=== PATIENT | male | born 1945 | race Caucasian/White ===

== ENCOUNTER 2017-08-04 07:26 | Day surgery (SDC) | payer MEDICARE, OTHER ==
[~2017-08-04] VITALS: Ht 175.3 cm; Wt 143.8 kg
[~2017-08-04 07:26] MED LIST: ADVAIR DISK2 IN; ALBUTEROL SUL0.083 % IN; ASPIRIN ADULT L81 MG PO; CO Q-10200 M1 PO; DELTASONE20 MG PO; DOXYCYCL HYC100 MG PO; GLIPIZIDE10 MG PO; HYDROCHLOROT50 MG PO; INVOKANA300 MG; METFORMIN1000 MG PO; MOVE FREE JOINT1 TAB PO; MULTI VIT PO; PROBIOTIC DAILY1 CAP PO; ROBITUSSIN AC10 ML PO; VENTOLIN HFA IN; VITAMIN B-6100 MG PO; ZESTRIL10 M1 PO
[2017-08-04 10:04] VITALS: BP 103/55
== END 2017-08-04 10:20 | disposition home or self-care (01) ==
LOC: ENDO 07:26
PROVIDERS: ATTEND Surgery
PROC: 0DJD8ZZ Inspection of Lower Intestinal Tract, Via Natural or Artificial Opening Endoscopic (ICD-10-PCS; principal; 2017-08-04)
DX: Z12.11 Encounter for screening for malignant neoplasm of colon (principal); K57.30 Diverticulosis of large intestine without perforation or abscess without bleeding; Z86.010 Personal history of colon polyps

== ENCOUNTER 2017-08-17 14:45 | Inpatient (IN) | payer MEDICARE, OTHER ==
[~2017-08-17] VITALS: Ht 175.3 cm; Wt 145.1 kg
[2017-08-17] MEDS ORDERED: METFORMIN1000 MG PO (16:12)
[2017-08-17] MEDS ORDERED: ZESTRIL10 M1 PO (16:13)
[2017-08-17] MEDS ORDERED: HYDROCHLOROTHIA50 MG PO (16:15)
--- NOTE | 2017-08-20 17:40 | NUR ---
FROM OR VIA BED ACCOMPANIED BY MARKOS RODRÍGUEZ. AT BEDSIDE. RESPS EVEN AND UNLABORED ON O2 VIA NC. LEFT ARM IN SLING. LEFT FINGERS WITH FULL RANGE OF MOTION, BRISK CAP REFILL. SCD'S TO BILAT LOWER EXTRMITIES. #20 RFA INFUSING WITHOUT DIFFICULTY, SITE APPEARS HEALTHY. DENIES PAIN OR DISCOMFORT. ORIENTED TO ROOM AND CALL SYSTEM. SAFETY PRECAUTIONS REINFORCED. BED IN LOWEST POSITION WITH WHEELS LOCKED. CALL LIGHT WITHIN REACH. ENCOURAGED PT TO CALL FOR ANY NEEDS.
[2017-08-20 17:55] VITALS: BP 95/52
--- NOTE | 2017-08-20 18:00 | NUR ---
TOLERATING CLEAR LIQUID DIET WITHOUT C/O NAUSEA OR ABD PAIN.
[2017-08-20 18:10] VITALS: BP 95/52
[2017-08-20 18:25] VITALS: BP 92/48
[2017-08-20 18:40] VITALS: BP 92/47
--- NOTE | 2017-08-20 19:05 | NUR ---
MEDICATED WITH DILAUDID 1MG IVP FOR C/O 3/10 LEFT SHOULDER PAIN.
[2017-08-20 19:10] VITALS: BP 101/58
--- NOTE | 2017-08-20 21:40 | NUR ---
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 AT BEDSIDE AND PT EDUCATED ON USE X10 PER HR,GOAL SET TO 2000;LUNGS CLEAR;SCD'S IN PLACE;#20G TO RIGHT FOREARM INFUSING LR @ 100ML/HR;PT TOLERATING PO FLUIDS WELL;SAFETY PRECAUTIONS REINFORCED;PT DENIES ANY OTHER NEEDS;CALL LIGHT IN REACH;WILL CONTINUE TO MONITOR
--- NOTE | 2017-08-20 23:00 | NUR ---
PT MEDICATED WITH DILAUDID 1MG FOR PAIN,WILL CONTINUE TO MONITOR FOR EFFECTIVENESS
--- NOTE | 2017-08-21 | NUR ---
PT APPEARS TO BE SLEEPING WITH EYES CLOSED AND HOME CPAP ON;RESPIRATIONS EVEN AND UNLABORED;IV FLUIDS INFUSING WELL;NO S/S OF DISTRESS NOTED;CALL LIGHT IN REACH;WILL CONTINUE TO MONITOR
[2017-08-21 00:22] VITALS: BP 110/62
--- NOTE | 2017-08-21 03:40 | NUR ---
PT COMPLAINS OF LEFT SHOULDER PAIN RATING 6/10 ON THE PAIN SCALE AND REQUESTS PAIN MEDICATION;PT MEDICATED WITH PRN PERCOCET 1 COMBO;PT REQUESTS TO AMBULATE AROUND THE ROOM,NURSE AT BEDSIDE;PT AMBULATES WITH A STEADY GAIT;RESPIRATIONS EVEN AND UNLABORED ON RA;PT RE-POSITIONED IN RECLINER;FALL PRECAUTIONS IN PLACE;WILL CONTINUE TO MONITOR
[2017-08-21 03:55] VITALS: BP 122/63
--- NOTE | 2017-08-21 05:40 | NUR ---
PT REPORTS TO HAVE VOMITED IN RESTROOM;PT TO BE MEDICATED WITH ZOFRAN 4MG IV;EMESIS BAG PROVIDED;PT ALSO REPORTS PAIN TO BE A 6/10 ON THE PAIN SCALE BUT DENIES THE NEED FOR PAIN MEDICATION;PT STATES "IM GOING HOME TODAY SO I WILL WAIT UNTIL I CAN HAVE THE PERCOCET AGAIN";WILL CONTINUE TO MONITOR
--- NOTE | 2017-08-21 07:00 | NUR ---
SHIFT CHANGE REPORT FRON JEFF, PT AWAKE ALERT AND ORIENTED SITTING UP IN SOFA, C/O ACHING PAIN TO SURGICAL ARM @ 5/10 BUT REFUSES ANALGESICS AT THIS TIME, ARM ELEVATED IN SLING,IVF INFUSING, PT AMBULATES INDEPENDENTLY IN ROOM AND CALL COOLEY REACHABLE. PT REPORTS UNIT WAS VERY NOISY DURING THE NIGHT IF THERE WAS A REPUBLICAN AND THAT CONDITION KEPT HIM FROM SLEEPING WELL, ADVISED STAFF WILL ADDRESS ALL PROBLEMS/PATIENTS' CONCERNS FOR COMFORT. WILL CONTINUE TO MONITOR.
[2017-08-21 07:52] LABS: HEMATOCRIT 43.8 % (39.0-50.0); HEMOGLOBIN 15.3 g/dl (14.0-18.0)
[2017-08-21 09:19] VITALS: BP 90/53
[2017-08-21] MEDS ORDERED: PERCOCET1 TA4 PO (11:38)
[2017-08-21 12:04] LABS: ANION GAP 17 (6-22 (CALC)); BUN 13 mg/dL (8-23); BUN/CREATININE RATIO 18 (12-20 (CALC)); CALCIUM 9.3 mg/dL (8.4-10.2); CARBON DIOXIDE 23 mmol/l (22-30); CHLORIDE 101 mmol/l (95-108); CREATININE 0.7 mg/dL (0.7-1.3); GFR > 60 ML/MIN (>=60 (CALC)); GFR FOR AFR.AMER. > 60 ML/MIN (>=60 (CALC)); GLUCOSE 199 mg/dL (82-115); POTASSIUM 4.3 mmol/l (3.5-5.1); SODIUM 136 mmol/l (137-146)
--- NOTE | 2017-08-21 12:30 | NUR ---
CALLED DR NICOLE TO INQUIRE ABOUT F/U APPOINTMENT AND DRESSING CHANGES, GAVE ORDERS AND ORDERS PLACED IN D/C INSTRUCTIONS.
--- NOTE | 2017-08-21 13:07 | NUR ---
Discharge instructions given. Patient verbalizes understanding of same. Discharged in stable condition via Wheelchair to Home with spouse. All belongings sent with pt.
== END 2017-08-21 12:51 | disposition home or self-care (01) | DRG 483 ==
LOC: MS2 08-20 10:08
PROVIDERS: ADMIT Orthopaedic Surgery; ATTEND Internal Medicine
PROC: 0RRK00Z Replacement of Left Shoulder Joint with Reverse Ball and Socket Synthetic Substitute, Open Approach (ICD-10-PCS; principal; 2017-08-20)
PROC: 0LS40ZZ Reposition Left Upper Arm Tendon, Open Approach (ICD-10-PCS; 2017-08-20)
DX: M19.012 Primary osteoarthritis, left shoulder (principal); E11.9 Type 2 diabetes mellitus without complications; S46.212A Strain of muscle, fascia and tendon of other parts of biceps, left arm, initial encounter; I10 Essential (primary) hypertension; J45.909 Unspecified asthma, uncomplicated; M75.102 Unspecified rotator cuff tear or rupture of left shoulder, not specified as traumatic; G47.33 Obstructive sleep apnea (adult) (pediatric); X58.XXXA Exposure to other specified factors, initial encounter; Z87.891 Personal history of nicotine dependence; Z79.84 Long term (current) use of oral hypoglycemic drugs
CPT/HCPCS: J2710

== ENCOUNTER 2017-09-17 20:03 | Inpatient (IN) | payer MEDICARE, OTHER ==
[~2017-09-17] VITALS: Ht 175.3 cm; Wt 143.0 kg
[~2017-09-17 20:03] MED LIST changes: +HYDROCHLOROTHIA50 MG PO; +PERCOCET1 TA4 PO
--- NOTE | 2017-09-17 20:05 | NUR ---
PT. AMBULATORY WITH STEADY GAIT TO TREATMENT ROOM.
[2017-09-17 21:41] LABS: HEMATOCRIT 41.5 % (39.0-50.0); HEMOGLOBIN 14.5 g/dl (14.0-18.0); IMMATURE GRANULOCYTES 0.3 % (0.0-1.0); MEAN CELL VOLUME 93.3 fL CALC (80.0-100.0); MEAN CORPUSCULAR HGB 32.6 pG CALC (26.0-32.0); MEAN CORPUSCULAR HGB CONC 34.9 g/L CALC (32.0-36.0); NEUT# 6.92 thou/uL (1.82-7.42); RED BLOOD COUNT 4.45 mill/uL (4.70-6.10)
[2017-09-17 21:56] LABS: ALKALINE PHOSPHATASE 86 u/l (38-126); ANION GAP 17 (6-22 (CALC)); BILIRUBIN, TOTAL 0.6 mg/dL (0.0-1.4); BUN 16 mg/dL (8-23); BUN/CREATININE RATIO 16 (12-20 (CALC)); CALCIUM 9.6 mg/dL (8.4-10.2); CARBON DIOXIDE 26 mmol/l (22-30); CHLORIDE 97 mmol/l (95-108); GFR > 60 ML/MIN (>=60 (CALC)); GFR FOR AFR.AMER. > 60 ML/MIN (>=60 (CALC)); GLUCOSE 238 mg/dL (82-115); POTASSIUM 4.3 mmol/l (3.5-5.1); SGOT/AST 35 u/l (19-48); SGPT/ALT 46 u/l (11-66); SODIUM 136 mmol/l (137-146); TOTAL PROTEIN 7.2 g/dL (6.3-8.2)
--- NOTE | 2017-09-17 22:23 | NUR ---
PT UP TO BR TO VOID. NAD. ANTIBIOTICS COMPLETED.
--- NOTE | 2017-09-18 01:17 | NUR ---
REPORT TO ANGELICA ON MED-SURG. PT BEING ADMITTED TO 283
[2017-09-18 01:55] VITALS: BP 126/82
--- NOTE | 2017-09-18 01:55 | NUR ---
VANCOMYCIN MIXED AND HUNG/NS BOLUS HUNG. PT TRANSPORTED TO FLOOR ALONG WITH . NAD.
--- NOTE | 2017-09-18 02:00 | NUR ---
PT ARRIVED TO ROOM VIA STRETCHER. ORIENTATION TO ROOM AND CALL LIGHT SYSTEM GIVEN. SNACK GIVEN. MED ORDERS COMPLETED. POC EXPLAINED. DENIES NEEDS. PHOTO DOCUMENTATION OF LT SHOULDER TAKEN. WILL CONTINUE TO MONITOR. CALL LIGHT IN REACH
[2017-09-18 03:45] VITALS: BP 130/67
--- NOTE | 2017-09-18 04:48 | NUR ---
PT IN BED AWAKE. DENIES NEEDS. NO S/S OF DISTRESS. CALL LIGHT IN REACH.
--- NOTE | 2017-09-18 07:00 | NUR ---
SHIFT CHANGE REPORT FROM BLAIR LOVELL AWAKE ALERT AND ORIENTED SITTING UP IN RECLINER, LEFT SHOULDER & ARM SWOLEN WITH WARMTH AND REDNESS AROUND INCISION SITE, DENIES PAIN AT THIS TIME BUT REPORTS HE DOES HAVE PAIN ON MOVEMENT OF ARM. IVF INFUSING, CALL COOLEY IN REACH, WILL CONTINUE TO MONITOR.
[2017-09-18 07:54] VITALS: BP 128/62
--- NOTE | 2017-09-18 11:44 | NUR ---
SITTING UP IN RECLINER, PAIN CONCERNS ADDRESSED, SPOUSE VISITING, CALL COOLEY IN REACH.
[2017-09-18 15:16] VITALS: BP 104/69
--- NOTE | 2017-09-18 16:19 | NUR ---
RELAXING IN RECLINER AT THIS TIME AFTER BEING ASSISTED WITH SHOWER BY LACING STRING CUTTER, ALL NEEDS MET/ADDRESSED, SPOUSE VISITING IN ROOM, OTHER FAMILY MEMBERS JUST ARRIVED ALSO, CALL COOLEY IN REACH.
--- NOTE | 2017-09-18 19:50 | NUR ---
PT AWAKE AND RESTING IN BED . PT ALERT AND ORIENTED. RESP EVEN AND UNLABORED. NO DISTRESS NOTED. LUNGS ARE CLEAR, DIMINISHED AT BASES BILAT. ABD IS DISTENDED,SOFT WITH ACTIVE BOWEL SOUNDS. EDEMA IN ANKLES BILAT +1 NOTED. PEDAL PULSES PALPATED. IV PATENT IN RIGHT HAND, FLUSHED WITHOUT ANY DIFFICULTY. LEFT SHOULDER IS RED AND SWOLLEN. SHOULDER HAS A YELLOW SPOT THAT IS UNOPEN AT THIS TIME WITH NO DRAINAGE. PT DENIES ANY PAIN OR DISCOMFORT AT THIS TIME. SAFETY PRECAUTIONS REINFORCED. FREQUENT ROUNDS MADE. CALL LIGHT WITHIN REACH.
[2017-09-18 20:10] VITALS: BP 121/76
--- NOTE | 2017-09-19 01:30 | NUR ---
PT LEFT SHOULDER WOUND STARTED TO DRAIN. PT STATED "I WOKE UP TO GO TO THE BATHROOM AND MY SHIRT WAS WET". SEROSANGUINEOUS DRAINAGE ON BED SHEETS, WOUND ACTIVELY DRIPPING. WOUND CULTURE TAKEN, PT CLEANED UP. PT RESTING IN BEDSIDE CHAIR, PT MEDICATED WITH LORTAB FOR "BURNING" PAIN AT SITE. GAUZE AND ABD PAD APPLIED TO SITE FOR DRAINAGE. PT STATES " SOME PRESSURE FEELS RELIEVED FROM SITE." WILL CONTINUE TO MONITOR. CALL LIGHT WITHIN REACH.
--- NOTE | 2017-09-19 04:42 | NUR ---
COPY ROOM TECHNICIAN IN ROOM WITH PT.
[2017-09-19 05:08] VITALS: BP 129/79
[2017-09-19 05:31] LABS: HEMATOCRIT 39.7 % (39.0-50.0); HEMOGLOBIN 13.7 g/dl (14.0-18.0); MEAN CELL VOLUME 94.7 fL CALC (80.0-100.0); MEAN CORPUSCULAR HGB 32.7 pG CALC (26.0-32.0); MEAN CORPUSCULAR HGB CONC 34.5 g/L CALC (32.0-36.0); RED BLOOD COUNT 4.19 mill/uL (4.70-6.10)
[2017-09-19 05:33] LABS: ANION GAP 14 (6-22 (CALC)); BUN 11 mg/dL (8-23); BUN/CREATININE RATIO 17 (12-20 (CALC)); CALCIUM 9.3 mg/dL (8.4-10.2); CARBON DIOXIDE 24 mmol/l (22-30); CHLORIDE 105 mmol/l (95-108); CREATININE 0.7 mg/dL (0.7-1.3); GFR > 60 ML/MIN (>=60 (CALC)); GFR FOR AFR.AMER. > 60 ML/MIN (>=60 (CALC)); GLUCOSE 152 mg/dL (82-115); MAGNESIUM 1.9 mg/dL (1.6-2.3); POTASSIUM 4.5 mmol/l (3.5-5.1); SODIUM 139 mmol/l (137-146)
--- NOTE | 2017-09-19 06:19 | NUR ---
PT APPEARS TO BE SLEEPING WITH CPAP IN PLACE. RESP EVEN AND UNLABORED. NO DISTRESS NOTED. CALL LIGHT WITHIN REACH.
--- NOTE | 2017-09-19 07:00 | NUR ---
SHIFT CHANGE REPORT FROM OSMEL, PT AWAKE ALERT AND ORIENTED SITTING UP IN CHAIR, REDNESS TO INFECTED SHOULDER IMPROVING, JAMILAH DRESSING WITH SMALL AMT SEROSANGUINOUS DRAINAGE CHANGED, WARM COMPRESS APPLIED, PT REPORTED HIS SHOULDER FEELS BETTER AFTER RELEASING COPIOUS AMOUNT DRAINAGE DURING NIGHT.
[2017-09-19 07:31] VITALS: BP 126/77
[2017-09-19 15:02] VITALS: BP 127/81
--- NOTE | 2017-09-19 16:00 | NUR ---
DR NICOLE HERE TO CONSULT WITH PT, PLACED DRAIN TO LEFT SHOULDER AND ORDERED DRY DRESSINGS BID AND PRN. PT LOST IV SITE, CREPE MAKER TY INFORMED AND ATTEMPTED UNSUCCESSFULLY TO PLACE NEW ONE, I ALSO TRIED AND WAS UNABLE TO START ONE, HEATH (CREPE MAKER) NOTIFIED AND WILL HAVE HS SHIFT FOLLOW-UP.
--- NOTE | 2017-09-19 18:55 | NUR ---
RECEIVED REPORT FROM LEANDER RAMON RN. INTRODUCED TO PT, FOUND PT SITTING ON RECLINER, NO DISTRESS NOTED, RESP ARE EVEN AND UNLABORED, DENIES PAIN, DRESSING TO RIGHT SHOULDER APPEARS CDI AT THIS TIME, WILL REASSESS AND CHANGE NEEDED, HAS A 22G LAC INFUSING MAXIPINE AT 200ML/HR AT THIS TIME WHEN COMPLETE WILL START VANCOMYCIN INFUSION, DENIES NEEDS, ENCOURAGED TO CALL IF NEEDED, VOICES UNDERSTANDING, WILL FOLLOW UP WITH ASSESSMENT AND MED SCHEDULE, CALL COOLEY AT REACH.
[2017-09-19 19:10] VITALS: BP 117/78
--- NOTE | 2017-09-19 20:04 | NUR ---
VACOMYCIN INFUSION STARTING AT THIS TIME, PREVIOUSLY MAXIPINE INFUSING, MAXIPINE STOPPED AND RESTARTED AGAIN DUE TO IV SITE PROBLEMS, NEW IV STARTED BY TRISTON LOERA SUP, EDUCATED PT ABOUT VANCOMYCIN SIDE EFFECTS, VOICES UNDERSTANDING, STATES HAD VACOMYCIN INFUSION BEFORE, ENCOURAGED TO CALL IF ANY DISCOMFORT OR PAIN, VOICES UNDERSTANDING, MEDICATED WITH LORTAB FOR RIGHT SHOULDER SHARP PAIN, RATES IT AT 3/10, WILL CONTINUE TO REASSESS.
--- NOTE | 2017-09-19 21:15 | NUR ---
ADMINISTERED LEVEMIR 18 UNITS SC PER EMAR, ACCU FINGERSTICK 161, PROVIDED A TURKEY SANDWICH, CHANGED DRESSING TO LEFT SHOULDER, MODERATE SEROSANGUINEOUS DRAINAGED NOTED, WOUND CULTURE OBTAINED AT THIS TIME PER DR. PAUL ORDERS, APPLIED CLEAN DRESSING AND ABD PAD, SECURED WITH SILK TAPE, SEE PICTURE IN CHART. PT CONTINUES SITTING UP IN RECLINER WATCHING TV, INSTRUCTED TO CALL IF NEEDED. CALL COOLEY AT REACH, RESP ARE EVEN AND UNLABORED ON ROOM AIR, USES CIPAP AT NIGHT, PT TOLERATED ACTIVITY WELL, NO DISTRESS NOTED.
--- NOTE | 2017-09-20 00:15 | NUR ---
PT AWAKE, RESTING IN BED, WEARING CIPAP, NO DISTRESS NOTED, C/O TENDER PAIN TO LEFT SHOULDER, RATES IT AT 1/10, REFUSES PAIN MED AT THIS TIME, DRESSING CDI, IV SITE REMAINS PATENT FLUSHES WELL, NO DISTRESS NOTED, WILL CONTINUE TO MONITOR. CALL COOLEY AT REACH.
--- NOTE | 2017-09-20 04:00 | NUR ---
STARTED MAXIPINE INFUSION AT THIS TIME, IV SITE IS PATENT, NO S/S OF INFILTRATION NOTED, PT RESTING IN BED, SUPINE POSITION, WEARING CIPAP, RESP ARE EVEN AND UNLABORED, DENIES PAIN, DRESSING TO LEFT SHOULDER REMAINS CDI, NO DRAINAGE NOTED AT THIS TIME, WILL CONTINUE TO MONITOR, ENCOURAGED TO CALL IF NEEDED, CALL COOLEY AT REACH.
[2017-09-20 04:37] VITALS: BP 133/74
--- NOTE | 2017-09-20 04:46 | NUR ---
C/O PAIN TO LEFT SHOULDER, RATES IT AT 4/10, MEDICATED WITH LORTAB, DRESSING APPEARS CDI, NO SIGNS OF DRAINAGED NOTED, ASSISTED TO BRP, VOIDED 300CC CLEAR YELLOW URINE, NO BM NOTED, DENIES ANY OTHER NEEDS, WILL CONTINUE TO REASSESS, CALL COOLEY AT REACH.
--- NOTE | 2017-09-20 06:52 | NUR ---
VANCO INFUSING WITHOUT DIFFICULTY AT THIS TIME, PT DENIES PAIN, DRESSING TO LEFT SHOULDER IS CDI, NO DRAINAGE NOTED AT THIS TIME, WILL CONTINUE TO MONITOR. CALL COOLEY AT REACH. CONTINUE ON CIPAP.
--- NOTE | 2017-09-20 07:00 | NUR ---
SHIFT CHANGE REPORT FROM DARCY, PT RESTING IN BED, AWAKE ALERT AND ORIENTED, C/O MILD ACHING PAIN TO LEFT SHOULDER @ 3/10, ISSUE ADDRESSED, DRESSING TO SHOULDER IN TACT WITH NO VISIBLE SIGN DRAINAGE, ALL NEEDS ADDRESSED, CALL COOLEY IN REACH.
[2017-09-20 07:42] VITALS: BP 127/85
--- NOTE | 2017-09-20 08:00 | NUR ---
UPON ASSESSMENT PT IS AWAKE AND ORIENTED X3. PTS LUNGS ARE CLEAR AND PULSE IS REGULAR.PERRLA 3. RESPIRATIONS ARE EVEN AND UNLABORED, PT IS ON ROOM AIR. PT HAS A 22G LAC, IV IS FREE FROM IRRITATION. REDNESS, SWELLING. BOWEL SOUNDS ARE NORMAL IN ALL FOUR QUADRANTS. ABDOMEN IS DISTENDED BUT SOFT. DESTINI'S SIGN IS NEGATIVE. PT'S LEFT ANKLE IS 1 PLUS SLIGHTLY PITTING EDEMA. PT'S RIGHT ANKLE IS TRACE EDEMA. DRESSING CHANGE TO PATIENTS LEFT SHOULDER DONE BY . SEROSANQUINEOUS FLUID ON THE OLD DRESSING AND SEEPING FROM WOUND. EDEMA AND REDNESS NOTED. PIG TAIL DRIANS INTACT, WOUND WAS CLEANED WITH CHLORAPREP. WOUND DRESSED WITH JAMILAH AND AN ABD PAD. PATIENT HAS NO COMPLAINTS OF PAIN AT THIS TIME. PT IS UP IN HIS RECLINER WITH LEGS ELEVATED. PT DOES NOT EXPRESS ANY NEEDS AT THIS TIME. CALL LIGHT WITHIN REACH. PT ENCOURAGED TO CALL FOR HELP IF NEEDED. WILL CONTINUE TO MONITOR.
--- NOTE | 2017-09-20 09:34 | NUR ---
DR HILL ([facility]) HERE AT THIS TIME ROUNDING, ASSESSED WOUND TO L. SHOULDER AND CHANGED DRESSING, OLD JAMILAH DRESSING SATURATED WITH SEROSANGUINOUS DRAINAGE, WOUND CLEANED WITH CHLORAPREP AND NEW STERILE JAMILAH DRESSING APPLIED, COVERED WITH ABD PAD AND SECURED WITH PAPER TAPE.
--- NOTE | 2017-09-20 10:05 | NUR ---
Vancomycin single level analysis: Current dose being given: 1500 mg Current dosing interval: 12 hrs Current infusion time (hrs): 2 Single level Trough Data: Trough level obtained: 7 mcg/ml NEXT TROUGH WILL BE 1230 ON 09/21/17 Recommendations: Give Vancomycin 1500 mg q 8 hrs. Infuse over 2 hrs
[2017-09-20 11:30] VITALS: BP 107/69
--- NOTE | 2017-09-20 14:51 | NUR ---
SITTING UP IN CHAIR WITH SPOUSE AT SIDE AT THIS TIME, IVABT INFUSING, ALL NEEDS ADDRESSED, CALL COOLEY IN REACH.
[2017-09-20 17:00] VITALS: BP 107/59
[2017-09-20 19:20] VITALS: BP 117/76
--- NOTE | 2017-09-20 20:00 | NUR ---
PATIENT SITTING UP IN RECLINER AT THIS TIME-AWAKE ALERT AND ORIENTEDX3. PATIENT WITH NO COMPLAINTS AT THIS TIME. STATES RELIEF FROM PERCOCET TAKEN EARLIER. PATIENT WITH IV SITE TO LEFT AC INTACT AND APPEARS HEALTHY AT THIS TIME. PATIENT WITH DRESSING TO LEFT SHOULDER INTACT AT THIS TIME. PATIENT ENCOURAGE TO ELEVATE FEET WHEN OOB SINCE HE DOES HAVE SWELLING TO BOTH LE. SAFETY PRECAUTIONS REINFORCED. CALL LIGHT IN REACH. WILL CONT TO MONITOR.
--- NOTE | 2017-09-20 23:00 | NUR ---
DRESSING CHANGE TO LEFT SHOULDER BY LUIS ROE FRAMEMAN-STATES THAT THE DRAIN WAS FOUND OUT TWHEN DRESSING REMOVED. WOUND WAS CLEANSED WITH NS AND DSD APPLIED. MODERATE AMT OF SEROUS DRAINGAGE ON OLD DRESSING. PATIENT MEDICATED PER PATIENT REQUEST. CALL LIGHT IN REACH. WILL CONT TO MONITOR.
--- NOTE | 2017-09-21 | NUR ---
PATIENT RESTING IN BED AT THIS TIME APPEARS SLEEPING WITH EYES CLOSED AND C-PAP IN PLACE. CALL LIGHT IN REACH. WILL CONT TO MONITOR.
[2017-09-21 00:20] VITALS: BP 106/63
--- NOTE | 2017-09-21 03:52 | NUR ---
PATIENT RESTING IN BED-C/O LEFT SHOULDER PAIN-MEDICATED WITH LORTAB 5/325MG PO ORDERED. MAXIPIME HUNG ORDERED. CALL LIGHT IN REACH. WILL CONT TO MONITOR.
[2017-09-21 05:19] LABS: HEMATOCRIT 40.1 % (39.0-50.0); HEMOGLOBIN 13.8 g/dl (14.0-18.0); IMMATURE GRANULOCYTES 0.2 % (0.0-1.0); MEAN CELL VOLUME 93.3 fL CALC (80.0-100.0); MEAN CORPUSCULAR HGB 32.1 pG CALC (26.0-32.0); MEAN CORPUSCULAR HGB CONC 34.4 g/L CALC (32.0-36.0); NEUT# 2.9 thou/uL (1.82-7.42); RED BLOOD COUNT 4.3 mill/uL (4.70-6.10)
[2017-09-21 05:30] VITALS: BP 119/82
[2017-09-21 05:41] LABS: ANION GAP 14 (6-22 (CALC)); BUN 11 mg/dL (8-23); BUN/CREATININE RATIO 15 (12-20 (CALC)); CALCIUM 9.1 mg/dL (8.4-10.2); CARBON DIOXIDE 24 mmol/l (22-30); CHLORIDE 106 mmol/l (95-108); CREATININE 0.7 mg/dL (0.7-1.3); GFR > 60 ML/MIN (>=60 (CALC)); GFR FOR AFR.AMER. > 60 ML/MIN (>=60 (CALC)); GLUCOSE 145 mg/dL (82-115); MAGNESIUM 2.1 mg/dL (1.6-2.3); POTASSIUM 4.3 mmol/l (3.5-5.1); SODIUM 140 mmol/l (137-146)
[2017-09-21 09:24] VITALS: BP 139/66
[2017-09-21 09:38] LABS: URINE BILIRUBIN - DIPSTICK NEGATIVE (NEGATIVE); URINE BLOOD DIPSTICK NEGATIVE (NEGATIVE); URINE COLOR YELLOW; URINE GLUCOSE - DIPSTICK 250 mg/dL (NEGATIVE); URINE KETONE NEGATIVE (NEGATIVE); URINE LEUK ESTERASE NEGATIVE (NEGATIVE); URINE NITRITE - DIPSTICK NEGATIVE (Negative); URINE PROTEIN - DIPSTICK NEGATIVE (NEG-TRACE); URINE UROBILINOGEN - DIPSTICK 0.2 E.U./dL (0.2)
[2017-09-21 09:40] LABS: URINE CLARITY CLEAR
--- NOTE | 2017-09-21 11:17 | NUR ---
PT.UPRIGHT IN CHAIR WATCHING NEWS, MEDICATED ORDERS PROVIDE, DENIES ANY NEEDS AT THIS TIME, PT.ASSESSED AND POC DISCUSSED WITH PT. HE EXPRESSED EITHER GETTING PICC LINE PLACED OR GOING HOME WITH IV IN PLACE. HIS IS HAVING CATERACT SURGERY TODAY AND HE WANTS TO BE HOME TO HELP HER. CALL LIGHT IS WITHIN REACH AND HE DENIES ANY OTHER NEEDS AT THIS TIME
[2017-09-21] MEDS ORDERED: LISINOPRIL20 M1 PO (13:40)
[2017-09-21] MEDS ORDERED: ATORVASTATIN CA10 MG PO (13:40)
[2017-09-21] MEDS ORDERED: AMLODIPINE BESYL5 MG PO (13:40)
[2017-09-21] MEDS ORDERED: NOVOLOG100 UNIT/M SC (13:41)
[2017-09-21] MEDS ORDERED: LEVEMIR100 UNIT/M SC (13:41)
[2017-09-21] MEDS ORDERED: CUBICIN500 MG IV (13:42)
[2017-09-21 15:53] VITALS: BP 125/80
--- NOTE | 2017-09-21 17:30 | NUR ---
PT.DRESSING CHANGE COMPLETED AND IV ACCESS REMOVED INTACT, SITE APPEARS HEALTHY, PT.DISCHARGED IN GOOD CONDITION, VIA WC ACCOMPANIED BY STAFF AND .
== END 2017-09-21 17:30 | disposition home or self-care (01) | DRG 863 ==
LOC: ED 20:03 → ED-I 09-18 → ED 09-18 00:59 → MS2 09-18 01:00
PROVIDERS: Emergency Medicine; Nurse Practitioner Family; ADMIT Internal Medicine; ATTEND Internal Medicine
PROC: 0H9CXZX Drainage of Left Upper Arm Skin, External Approach, Diagnostic (ICD-10-PCS; principal; 2017-09-21)
DX: T81.4XXA Infection following a procedure, initial encounter (principal); E11.9 Type 2 diabetes mellitus without complications; L03.114 Cellulitis of left upper limb; E66.01 Morbid (severe) obesity due to excess calories; G47.33 Obstructive sleep apnea (adult) (pediatric); I10 Essential (primary) hypertension; Z68.42 Body mass index [BMI] 45.0-49.9, adult; Y83.1 Surgical operation with implant of artificial internal device as the cause of abnormal reaction of the patient, or of later complication, without mention of misadventure at the time of the procedure; Z96.612 Presence of left artificial shoulder joint; Z87.891 Personal history of nicotine dependence; Z79.84 Long term (current) use of oral hypoglycemic drugs
CPT/HCPCS: J0692; J1650; J3370

== ENCOUNTER 2019-01-20 13:04 | Emergency (ER) | payer MEDICARE, OTHER ==
[~2019-01-20] VITALS: Ht 175.3 cm; Wt 145.0 kg
[~2019-01-20 13:04] MED LIST changes: +AMLODIPINE BESYL5 MG PO; +ATORVASTATIN CA10 MG PO; +CUBICIN500 MG IV; +LEVEMIR100 UNIT/M SC; +LISINOPRIL20 M1 PO; +NOVOLOG100 UNIT/M SC
[2019-01-20] MEDS ORDERED: FLEXERIL PO (13:34)
[2019-01-20 13:36] VITALS: BP 131/74
== END 2019-01-20 13:37 | disposition home or self-care (01) ==
LOC: ED 13:04
DX: S39.012A Strain of muscle, fascia and tendon of lower back, initial encounter (principal); M54.5 Low back pain; X50.0XXA Overexertion from strenuous movement or load, initial encounter; X50.1XXA Overexertion from prolonged static or awkward postures, initial encounter; Y93.89 Activity, other specified; Y92.009 Unspecified place in unspecified non-institutional (private) residence as the place of occurrence of the external cause

== ENCOUNTER 2019-09-28 10:17 | Emergency (ER) | payer MEDICARE, OTHER ==
[~2019-09-28] VITALS: Ht 175.3 cm; Wt 145.0 kg
[~2019-09-28 10:17] MED LIST changes: +FLEXERIL PO
[2019-09-28] MEDS ORDERED: VOLTAREN1%GEL TOP (11:53)
[2019-09-28] MEDS ORDERED: ZESTRIL10 M1 PO (13:24)
[2019-09-28] MEDS ORDERED: LASIX 40 MG TAB40 MG PO (13:25)
[2019-09-28] MEDS ORDERED: METOPROL TAR25 MG PO (13:25)
[2019-09-28] MEDS ORDERED: METFORMIN850 MG PO (13:25)
[2019-09-28] MEDS ORDERED: TOPROL XL25 M1 PO (13:27)
[2019-09-28] MEDS ORDERED: TRESIBA100 UNIT/M (13:28)
[2019-09-28] MEDS ORDERED: LIPITOR20 M1 PO (13:28)
[2019-09-28 13:51] VITALS: BP 162/93
== END 2019-09-28 13:57 | disposition home or self-care (01) ==
LOC: ED 10:17
DX: M54.5 Low back pain (principal); M79.672 Pain in left foot; S40.212A Abrasion of left shoulder, initial encounter; I10 Essential (primary) hypertension; E11.9 Type 2 diabetes mellitus without complications; J45.909 Unspecified asthma, uncomplicated; W18.39XA Other fall on same level, initial encounter

== ENCOUNTER 2021-08-13 07:39 | Emergency (ER) | payer MEDICARE ==
[~2021-08-13] VITALS: Ht 175.3 cm; Wt 133.0 kg
[~2021-08-13 07:39] MED LIST changes: +ALLERGY RELIEF10 M4 PO; +ASPIRIN81 MG PO; +B121000 MC1 PO; +COQ10200 MG PO; +KETOCONAZOLE2 % EX; +LASIX 40 MG TAB40 MG PO; +LIPITOR20 M1 PO; +LOSARTAN POTASS50 MG PO; +METFORMIN500 M2 PO; +METOPROL TAR25 MG PO; +NEXIUM40 M1 PO; +OFEV150 MG PO; +POTASSIUM99 MG PO; +SINGULAIR10 MG PO; +TESSALON PERLE100 MG PO; +TOPROL XL25 M1 PO; +TRELEGY ELLIPTA1 AE1 IN; +TRESIBA100 UNIT/M SC; +VOLTAREN1%GEL TOP
[2021-08-13 08:45] LABS: URINE BLOOD DIPSTICK LARGE (NEGATIVE); URINE GLUCOSE - DIPSTICK NEGATIVE (NEGATIVE); URINE KETONE TRACE mg/dL (NEGATIVE); URINE LEUK ESTERASE TRACE (NEGATIVE); URINE PROTEIN - DIPSTICK 100 mg/dL (NEG-TRACE); URINE SPECIFIC GRAVITY >=1.030; URINE UROBILINOGEN - DIPSTICK 0.2 E.U./dL (0.2)
[2021-08-13 08:50] LABS: HEMATOCRIT 48.7 % (39.0-50.0); HEMOGLOBIN 16.1 g/dl (14.0-18.0); IMMATURE GRANULOCYTES 0.2 % (0.0-5.0); MEAN CELL VOLUME 92.8 fL CALC (80.0-100.0); MEAN CORPUSCULAR HGB 30.7 pG CALC (26.0-32.0); MEAN CORPUSCULAR HGB CONC 33.1 g/dL CAL (32.0-36.0); NEUT# 8.72 thou/uL (1.82-7.42); RED BLOOD COUNT 5.25 mill/uL (4.70-6.10); RED CELL DISTRI WIDTH 17.6 % (11.5-15.5)
[2021-08-13 08:55] LABS: URINE BILIRUBIN - DIPSTICK NEGATIVE (NEGATIVE); URINE COLOR BLOODY; URINE NITRITE - DIPSTICK NEGATIVE (Negative)
[2021-08-13 08:56] LABS: URINE RBC TNTC RBC/hpf (0-5); URINE WBC 0-2 WBC/hpf (0-5)
[2021-08-13 09:08] LABS: ALBUMIN 3.7 g/dL (3.2-5.0); ALKALINE PHOSPHATASE 81 u/l (38-126); ANION GAP 10 (6-22 (CALC)); BILIRUBIN, TOTAL 1.6 mg/dL (0.0-1.4); BUN 10 mg/dL (8-23); BUN/CREATININE RATIO 12 (12-20 (CALC)); CARBON DIOXIDE 29 mmol/l (22-30); CHLORIDE 105 mmol/l (95-108); CREATININE 0.9 mg/dL (0.7-1.3); GFR > 60 ML/MIN (>=60 (CALC)); GFR FOR AFR.AMER. > 60 ML/MIN (>=60 (CALC)); LIPASE 58 u/l (23-300); POTASSIUM 4.1 mmol/l (3.5-5.1); SGOT/AST 38 u/l (19-48); SODIUM 140 mmol/l (137-146); TOTAL PROTEIN 7.2 g/dL (6.3-8.2)
[2021-08-13] MEDS ORDERED: OMNI-PAC300 MG PO (09:45)
[2021-08-13 10:05] VITALS: BP 143/74
== END 2021-08-13 10:05 | disposition home or self-care (01) ==
LOC: ED 07:39
PROVIDERS: Family Medicine
DX: R31.9 Hematuria, unspecified (principal); I10 Essential (primary) hypertension; E11.9 Type 2 diabetes mellitus without complications; J84.112 Idiopathic pulmonary fibrosis; J45.909 Unspecified asthma, uncomplicated; E66.9 Obesity, unspecified; Z68.41 Body mass index [BMI] 40.0-44.9, adult; Z79.84 Long term (current) use of oral hypoglycemic drugs; Z79.4 Long term (current) use of insulin; Z20.822 Contact with and (suspected) exposure to COVID-19

== ENCOUNTER 2021-09-10 08:18 | Day surgery (SDC) | payer MEDICARE ==
[~2021-09-10 08:18] MED LIST changes: +OMNI-PAC300 MG PO
[2021-09-10 10:31] VITALS: BP 1401/84
== END 2021-09-10 10:39 | disposition home or self-care (01) ==
LOC: ORM 08:18
PROVIDERS: ATTEND Surgery
PROC: 0DJ08ZZ Inspection of Upper Intestinal Tract, Via Natural or Artificial Opening Endoscopic (ICD-10-PCS; principal; 2021-09-10)
DX: K44.9 Diaphragmatic hernia without obstruction or gangrene (principal); J44.9 Chronic obstructive pulmonary disease, unspecified; E11.9 Type 2 diabetes mellitus without complications; Z79.84 Long term (current) use of oral hypoglycemic drugs

== ENCOUNTER 2021-12-13 09:45 | Observation (INO) | payer MEDICARE ==
[2021-12-13] VITALS (32 sets, daily range): BP systolic 96–149; BP diastolic 51–96
[~2021-12-13] VITALS: Ht 172.7 cm; Wt 122.5 kg
[2021-12-13 11:22] LABS: HEMATOCRIT 46.8 % (39.0-50.0); HEMOGLOBIN 15.3 g/dl (14.0-18.0); IMMATURE GRANULOCYTES 0.3 % (0.0-5.0); MEAN CELL VOLUME 99.2 fL CALC (80.0-100.0); MEAN CORPUSCULAR HGB 32.4 pG CALC (26.0-32.0); MEAN CORPUSCULAR HGB CONC 32.7 g/dL CAL (32.0-36.0); NEUT# 8.4 thou/uL (1.82-7.42); RED BLOOD COUNT 4.72 mill/uL (4.70-6.10)
[2021-12-13 11:37] LABS: ALBUMIN 3.1 g/dL (3.2-5.0); ALKALINE PHOSPHATASE 78 u/l (38-126); BUN 10 mg/dL (8-23); BUN/CREATININE RATIO 16 (12-20 (CALC)); CHLORIDE 105 mmol/l (95-108); CREATININE 0.6 mg/dL (0.7-1.3); GFR > 60 ML/MIN (>=60 (CALC)); GFR FOR AFR.AMER. > 60 ML/MIN (>=60 (CALC)); POTASSIUM 3.4 mmol/l (3.5-5.1); SGOT/AST 36 u/l (19-48); SODIUM 135 mmol/l (137-146); TOTAL PROTEIN 6.7 g/dL (6.3-8.2)
[2021-12-13 11:40] LABS: ANION GAP 14 (6-22 (CALC)); BILIRUBIN, TOTAL 1.9 mg/dL (0.0-1.4); CARBON DIOXIDE 19 mmol/l (22-30)
[2021-12-13] MEDS ORDERED: TOPROL XL25 MG PO (12:07)
[2021-12-13] MEDS ORDERED: LOSARTAN POTASS50 MG PO (12:07)
[2021-12-13] MEDS ORDERED: TESSALON PERLE100 MG PO (12:08)
[2021-12-13] MEDS ORDERED: TRESIBA100 UNIT/M (12:41)
[2021-12-14] VITALS (20 sets, daily range): BP systolic 52–124; BP diastolic 36–95
[2021-12-14 05:36] LABS: HEMATOCRIT 42.9 % (39.0-50.0); HEMOGLOBIN 14.6 g/dl (14.0-18.0); IMMATURE GRANULOCYTES 0.2 % (0.0-5.0); MEAN CELL VOLUME 97.3 fL CALC (80.0-100.0); MEAN CORPUSCULAR HGB 33.1 pG CALC (26.0-32.0); NEUT# 8.02 thou/uL (1.82-7.42); RED BLOOD COUNT 4.41 mill/uL (4.70-6.10); RED CELL DISTRI WIDTH 13.9 % (11.5-15.5)
[2021-12-14 05:45] LABS: ALBUMIN 2.8 g/dL (3.2-5.0); ALKALINE PHOSPHATASE 65 u/l (38-126); BILIRUBIN, TOTAL 1.2 mg/dL (0.0-1.4); BUN 15 mg/dL (8-23); BUN/CREATININE RATIO 23 (12-20 (CALC)); CHLORIDE 105 mmol/l (95-108); CREATININE 0.6 mg/dL (0.7-1.3); GFR > 60 ML/MIN (>=60 (CALC)); GFR FOR AFR.AMER. > 60 ML/MIN (>=60 (CALC)); SGOT/AST 37 u/l (19-48); SODIUM 138 mmol/l (137-146); TOTAL PROTEIN 6.1 g/dL (6.3-8.2)
[2021-12-14 05:58] LABS: ANION GAP 14 (6-22 (CALC)); CARBON DIOXIDE 23 mmol/l (22-30); POTASSIUM 3.8 mmol/l (3.5-5.1)
[2021-12-15 00:18] VITALS: BP 120/75
[2021-12-15 05:43] VITALS: BP 132/79
[2021-12-15 08:15] VITALS: BP 132/79
[2021-12-15] MEDS ORDERED: LEVAQUIN750 M1 PO (14:27)
== END 2021-12-15 15:22 | disposition home or self-care (01) ==
LOC: ED 09:45 → ED-I 11:40 → ED 12:04 → ED-I 12:05 → MS2 12:05 → ED-I 12:05 → MS2 12-14 07:34
PROVIDERS: Family Medicine; ADMIT Internal Medicine; ATTEND Internal Medicine
DX: J18.9 Pneumonia, unspecified organism (principal); J84.112 Idiopathic pulmonary fibrosis; I10 Essential (primary) hypertension; E11.9 Type 2 diabetes mellitus without complications; E66.9 Obesity, unspecified; G47.33 Obstructive sleep apnea (adult) (pediatric); M15.9 Polyosteoarthritis, unspecified; Z79.84 Long term (current) use of oral hypoglycemic drugs; Z99.81 Dependence on supplemental oxygen; Z87.891 Personal history of nicotine dependence; Z96.612 Presence of left artificial shoulder joint; Z79.4 Long term (current) use of insulin; Z20.822 Contact with and (suspected) exposure to COVID-19
CPT/HCPCS: G0378; J3370